=== PATIENT | female | born 1975 | race Caucasian/White ===

== ENCOUNTER 2023-01-06 15:14 | Emergency (ER) | payer BC ==
[~2023-01-06] VITALS: Ht 167.6 cm; Wt 73.9 kg
[2023-01-06 15:15] VITALS: BP 106/74
--- NOTE | 2023-01-06 17:09 | NUR ---
MD HUI AT BEDSIDE FOR EVALUATION
[2023-01-06] MEDS ORDERED: KETOROLAC 60 MG/2 ML VIAL IM ONE (17:15)
[2023-01-06 18:00] VITALS: BP 111/74
[2023-01-06] MEDS ORDERED: IBUP-2213 PO (18:13)
--- NOTE | 2023-01-06 18:24 | NUR ---
Patient discharged with v/s stable. Written and verbal after care instructions FOR ABD PAIN AND COLONOSCOPY given and explained. Patient alert, oriented and verbalized understanding of instructions. Ambulatory with steady gait. All questions addressed prior to discharge. ID band removed. Patient advised to follow up with PMD. Rx of IBUPROFEN given. Opportunity to ask questions provided and answered.
--- NOTE | 2023-01-06 18:34 | NUR ---
The patient's care was reviewed and supervised by Dexter 05 FADI, RN.
== END 2023-01-06 18:24 | disposition home or self-care (01) ==
LOC: MED 15:14
DX: R10.84 Generalized abdominal pain (principal); R11.2 Nausea with vomiting, unspecified
CPT/HCPCS: 74022; 81002; 81025; 96372; 99283; J1885